=== PATIENT | male | born 1995 | race American Indian/Alaskan Native ===

== ENCOUNTER 2018-03-19 09:31 | Outpatient (CLI) | payer OTHER | END 2018-03-19 09:36 | disposition home or self-care (01) | LOC: SONOGRAMA 09:31 | DX: R10.32 Left lower quadrant pain (principal) ==

== ENCOUNTER 2019-10-13 00:11 | Emergency (ER) | payer OTHER ==
[~2019-10-13] VITALS: Ht 185.4 cm; Wt 81.6 kg
[2019-10-13] MEDS ORDERED: KETO10TA2 PO (03:19)
== END 2019-10-13 03:25 | disposition home or self-care (01) ==
LOC: ER 00:11
DX: S20.212A Contusion of left front wall of thorax, initial encounter (principal); S20.211A Contusion of right front wall of thorax, initial encounter; W50.0XXA Accidental hit or strike by another person, initial encounter; Y93.67 Activity, basketball; Y92.89 Other specified places as the place of occurrence of the external cause; Y99.8 Other external cause status